=== PATIENT | male | born 1965 | race Caucasian/White ===

== ENCOUNTER 2019-07-17 09:26 | Emergency (ER) | payer OTHER, SELFPAY ==
[2019-07-17 09:31] VITALS: BP 145/84; PULSE 91; RESP 28; TEMP 36.1; O2SAT 98
--- NOTE | 2019-07-17 09:33 | ED.GENADULT ---
HPI - General Adult General Chief complaint: Extremity Injury, Lower Stated complaint: Right foot big toe pain Time Seen by Provider: 07/17/19 09:38 Source: patient Mode of arrival: ambulatory Limitations: no limitations History of Present Illness HPI narrative: 53-year-old male patient presents to the [facility] with complaints of right great toe pain that started yesterday. Patient states he has had issues with gout before in the past. Patient states it hurts to walk on it as well as to touch it. Patient states is been swollen, painful and red. Patient states he did take 2 ibuprofen this morning for the pain. Patient states that he currently is on metformin for prediabetes and does have history of high blood pressure. Patient states he does not check sugars regularly. Patient is obese. Patient denies smoking. Patient denies any injury that he is aware of. Related Data Home Medications Medication Instructions Recorded Confirmed atorvastatin 40 mg PO DAILY 07/17/19 07/17/19 lisinopril-hydrochlorothiazide 1 tablet PO DAILY 07/17/19 07/17/19 metformin 1,000 mg PO BID 07/17/19 07/17/19 paroxetine HCl 10 mg PO QAM 07/17/19 07/17/19 quetiapine 200 mg PO HS 07/17/19 07/17/19 venlafaxine 75 mg PO BID 07/17/19 07/17/19 Allergies Allergy/AdvReac Type Severity Reaction Status Date / Time No Known Allergies Allergy Verified 07/17/19 09:30 Review of Systems Review of Systems: Narrative: CONSTITUTIONAL: Denies fever, chills, or sweats. EYES: Denies visual changes, redness, or discharge. ENT: Denies rhinorrhea, congestion, sore throat, or otalgia. CARDIOVASCULAR: Denies chest pain, palpitations, or edema. RESPIRATORY: Denies cough or dyspnea. GASTROINTESTINAL: Denies abdominal pain, nausea, vomiting, or diarrhea. GENITOURINARY: Denies dysuria or hematuria. SKIN: Denies rash or itching. MUSCULOSKELETAL: Denies back pain, joint pain, or myalgia. Positive right great toe pain NEUROLOGIC: Denies headache, numbness, or weakness. PSYCHIATRIC: Denies anxiety or depression. FOR[facility]LY [facility] Past Medical History Medical History (Updated 07/17/19 @ 09:54 by ANA MARÍA Nicholson) Bipolar disorder Diabetes Hypercholesterolemia Hypertension Obesity Comments At the time of my signature I agree with nursing past medical history, surgical, social, and family history. There is no relevant family history pertinent to the presenting complaint. Exam Narrative: Exam Narrative: GENERAL: Well-appearing, well-nourished, and in no acute distress. HEAD: Normocephalic, atraumatic. EYES: PERRLA and EOMI. ENT: Nares clear, no rhinorrhea or epistaxis. Mucous membranes moist. NECK: Supple. No lymphadenopathy CHEST: Clear to auscultation. No respiratory distress. HEART: Regular rate and rhythm. No murmur heard. Normal peripheral pulses. ABDOMEN: Soft, nontender, nondistended, normal active bowel sounds. EXTREMITIES: Normal range of motion. Patient has swelling, erythema, warmth noted over the PIP joints of the right great toe. SKIN: Warm, dry, no rash. NEURO: No focal deficits. Alert and oriented x3. Course Vital Signs Vital signs: Vital Signs Temperature 36.1 C L 07/17/19 09:31 Pulse Rate 91 07/17/19 09:31 Respiratory Rate 28 H 07/17/19 09:31 Blood Pressure 145/84 H 07/17/19 09:31 Pulse Oximetry 98 07/17/19 09:31 Temperature 36.1 C L 07/17/19 09:31 Pulse Rate 91 07/17/19 09:31 Respiratory Rate 28 H 07/17/19 09:31 Blood Pressure 145/84 H 07/17/19 09:31 Pulse Oximetry 98 07/17/19 09:31 Vital signs reviewed. The patient has been informed that they may have pre-hypertension or Hypertension based on a BP reading in the department. I recommend that the patient call the primary care provider listed on their discharge instructions or a physician of their choice this week to arrange follow up for further evaluation of possible pre-hypertension or Hypertension Medical Decision Making Differential Diagnosis Differential
== END 2019-07-17 09:54 | disposition home or self-care (01) ==
PROVIDERS: Emergency Provider Nurse Practitioner Family; PCP Internal Medicine
DX: M10.9 Gout, unspecified (principal); R73.03 Prediabetes; Z79.84 Long term (current) use of oral hypoglycemic drugs; I10 Essential (primary) hypertension; E78.00 Pure hypercholesterolemia, unspecified; F31.9 Bipolar disorder, unspecified; E66.9 Obesity, unspecified; Z68.43 Body mass index [BMI] 50.0-59.9, adult
CPT/HCPCS: 99213; G0463